=== PATIENT | male | born 1935 | race Caucasian/White ===

== ENCOUNTER 2018-01-17 13:21 | Inpatient (IN) ==
[2018-01-17] MEDS ORDERED: Morphine Sulfate Inj 2 MG/ML Vial IV.PUSH ONE (13:53)
--- NOTE | 2018-01-17 13:53 | ED ---
HPI General Chief Complaint: Fall Stated Complaint: Fall Time Seen by Provider: 01/17/18 13:37 Source: patient Mode of arrival: ambulatory Limitations: no limitations History of Present Illness HPI Narrative: 82-year-old male presents to the emergency room for evaluation of low back pain after a fall just prior to arrival. Patient was walking down his hallway when he tripped on the carpet and fell to the right striking his elbow on the wall before falling to the ground. Patient adamantly denies hitting his head or loss of consciousness. He was able to stand up in walk to the chair. States upon falling, he had pain to his low back that did not improve after sitting down. When his son got home, they called the ambulance who transferred him to the emergency room. Patient has not taken anything for symptoms. He denies upper or lower extremity paresthesias, saddle anesthesia, loss of bowel bladder control. He reports pain in the lower, midline lumbar region that is constant, severe, 10/10, and worse with movement. No radiation. He has history of slipped disks. Also history of hypercholesteremia, CHF, CAD , hypothyroidism, hypertension. He is on Eliquis and has a pacemaker and defibrillator. MD complaint: Reports fall Onset (ago): hour(s) Fall from: standing Fall witnessed: no Place fall occurred: home Loss of consciousness: none Prolonged down time: no Symptoms prior to fall: Reports none Context: Reports tripped/slipped Location of injury: Reports back Severity: severe Severity scale (1-10): 10 Quality: Reports stabbing Associated symptoms (after fall): Reports denies Related Data Home Medications Medication Instructions Recorded Confirmed Eliquis 2.5 mg PO QAM 01/17/18 01/17/18 atorvastatin 20 mg PO QPM 01/17/18 01/17/18 carvedilol 1 tab PO BID 01/17/18 01/17/18 furosemide 20 mg PO BID 01/17/18 01/17/18 levothyroxine 2.5 mg PO QAM 01/17/18 01/17/18 lisinopril 10 mg PO QAM 01/17/18 01/17/18 Allergies Allergy/AdvReac Type Severity Reaction Status Date / Time No Known Allergies Allergy Verified 01/17/18 13:27 Review of Systems ROS: all other systems reviewed are negative [facility] Medical History Medical History Chronic back pain (Acute) Edema (Acute) High cholesterol (Acute) Hypertension (Acute) Pacemaker (Acute) Social History Social History Substance History: No History of Abuse Second Hand Smoke Exposure: No Smoking Status: Never smoker How Often Do You Have a Drink Containing Alcohol: 2 to 4 times a month Recent Travel in [facility] within the Last 8 Weeks: No Recent Out of Country Travel within the Last 8 Weeks: No Immunization History Tetanus Immunization: Unsure Exam Narrative Exam Narrative: GENERAL: Well-nourished, elderly male in no acute distress. Afebrile. SKIN: Focused skin assessment warm/dry. No erythema or ecchymosis. HEAD: Normocephalic. EYES: No scleral icterus. No injection or drainage. NECK: Supple, trachea midline. No JVD or lymphadenopathy. CARDIOVASCULAR: Regular rate and rhythm without murmurs, gallops, or rubs. RESPIRATORY: Breath sounds equal bilaterally. No accessory muscle use. MUSCULOSKELETAL: No cyanosis, or edema. BACK: No obvious deformity. No CVA tenderness. Positive straight leg raise bilaterally. Mild tenderness to palpation of the lower thoracic and upper lumbar region. Course Initial Documented Vital Signs Temperature 98.6 F 01/17/18 13:33 Pulse Rate 70 01/17/18 13:33 Respiratory Rate 20 01/17/18 13:33 Blood Pressure 105/63 01/17/18 13:33 Pulse Oximetry 100 01/17/18 13:33 Last Documented Vital Signs Temperature 98.6 F 01/17/18 13:33 Pulse Rate 63 01/17/18 16:02 Respiratory Rate 18 01/17/18 16:02 Blood Pressure 114/65 01/17/18 16:02 Pulse Oximetry 100 01/17/18 16:02 Medical Decision Making [facility] Narrative Medical decision making narrative: 82-year-old male presents to the emergency room for evaluation of back pain after falling just prior to arrival. Patient had a trip and fall and fell to the right sustaining a skin tear to his right elbow before hitting the ground. He adamantly denies hitting his head or loss of consciousness. States he had significant back pain at that time but was able to stand up and walk to the couch. When his pain persisted, his family called 911 and had him brought to the emergency room. Patient denies any other pain or injury. Physical exam is reassuring. Patient is resting comfortably in bed. He has full range of motion of bilateral lower extremities with 5/5 strength. He was given 2 mg of morphine and Zofran for pain. CT of the lumbar spine shows severe compressive deformity at T12 with fracturing without significant compressive deformity at L1. I spoke to the neurosurgeon on-call, Dr. Mcelroy, who recommends placing patient in TLSO brace and admitting to the trauma service. My attending physician, Dr. Kraft, spoke to Dr. Hazel, the trauma surgeon, who agrees to accept this patient to his service. He recommends adding CT head and abdomen as well as chest x-ray. CT of the neck was also added. CT of the head, neck, and abdomen are negative for acute abnormalities. The abdomen CT shows possible ileus and inguinal hernia with fat on the right side. On exam I see no hernia. Patient denies any difficulty with bowel movements or abdominal pain. Patient was offered a second dose of pain medication but declined. Basic labs show evidence of mild dehydration. He was given 500 cc bolus of fluids. He will be transferred to the main hospital. Patient understands and agrees to plan. Medical Screen Exam Complete: Yes Emergency Medical Condition: Yes Differential Diagnosis Differential Diagnosis: Contusion, fracture, strain, spasm, degenerative disc disease Lab Data Result diagrams: 01/17/18 15:15 01/17/18 15:15 Lab Results 01/17/18 01/17/18 01/17/18 Range/Units 15:15 15:15 15:15 CBC w Diff Auto diff final WBC 11.1 H (4.0-11.0) th/mm3 RBC 3.29 L (4.50-5.90) mil/mm3 Hgb 11.4 L (13.0-17.0) gm/dL Hct 33.2 L (39.0-51.0) % MCV 101.1 H (80.0-100.0) fL MCH 34.7 H (27.0-34.0) pg MCHC 34.4 (32.0-36.0) % RDW 14.3 (11.6-17.2) % Plt Count 140 L (150-450) th/mm3 MPV 8.0 (7.0-11.0) fL Neut % (Auto) 66.0 (16.0-70.0) % Lymph % (Auto) 25.9 (9.0-44.0) % [place] % (Auto) 6.3 (0.0-8.0) % Eos % (Auto) 0.3 (0.0-4.0) % Baso % (Auto) 1.5 (0.0-2.0) % Neut # (Auto) 7.2 (1.8-7.7) th/mm3 Lymph # (Auto) 2.9 (1.0-4.8) th/mm3 [place] # (Auto) 0.7 (0.0-0.9) th/mm3 Eos # (Auto) 0.0 (0.0-0.4) th/mm3 Baso # (Auto) 0.2 (0.0-0.2) th/mm3 WBC Differential . Differential Comment . PT 15.5 H (9.8-11.6) sec INR 1.5 Ratio APTT 40.1 H (24.3-30.1) sec Sodium 127 L (136-145) meq/L Potassium 3.7 (3.5-5.1) meq/L Chloride 89 L (98-107) meq/L Carbon Dioxide 26.7 (21.0-32.0) meq/L Anion Gap 11 (5-15) meq/L BUN 10 (7-18) mg/dL Creatinine 1.30 (0.60-1.30) mg/dL Estimated GFR 53 L (>89) mL/min Random Glucose 115 H (74-106) mg/dL Calcium 8.0 L (8.5-10.1) mg/dL Total Bilirubin 2.2 H (0.2-1.0) mg/dL AST 50 H (15-37) U/L ALT 23 (12-78) U/L Alkaline Phosphatase 146 H (45-117) U/L Total Protein 7.9 (6.4-8.2) g/dL Albumin 2.7 L (3.4-5.0) g/dL Imaging Data Radiologist's impression: Lumbar Spine CT 01/17/18 13:50 CONCLUSION: Severe compressive deformity at T12 and fracturing without significant compressive deformity at L1. Abdomen/Pelvis CT 01/17/18 16:07 CONCLUSION: 1. Nonspecific bowel gas pattern. This may represent an ileus. The bowel extends down into the right inguinal hernia is no definite inflammatory change.. 2. No acute visceral injury. 3. Visualization of the known fracture deformity of the T12 vertebral body again noted. Please see lumbar spine CT for further details. 4. Bilateral inguinal hernias. On the right there is a loop of bowel in the hernia. On the left there is fat. Cervical Spine CT 01/17/18 16:07 CONCLUSION: 1. No fracture or dislocation. 2. Osteopenia and degenerative changes as detailed above. Chest X-Ray 01/17/18 16:07 CONCLUSION: No acute cardiopulmonary disease. Head CT 01/17/18 16:07 CONCLUSION: 1. No acute hemorrhage or mass effect. 2. Low-attenuation areas in the left frontal lobe most characteristic of an area of encephalomalacia and prior infarction. . Discharge Plan Discharge Disposition Patient Disposition: 01 Discharge Home Discharge Condition Condition: Stable Physicians Team ED Provider: Ernesto Kraft ED Midlevel Provider: Dana Gonzalez Primary Care Provider: Primary Care Sintia Greenberg Attending Provider: Katie Hazel Status ED Status: Admitted Patient
[2018-01-17 15:24] LABS: Baso # (Auto) 0.2 th/mm3 (0.0-0.2); Baso % (Auto) 1.5 % (0.0-2.0); Eos % (Auto) 0.3 % (0.0-4.0); Hematocrit 33.2 % (39.0-51.0); Hemoglobin 11.4 gm/dL (13.0-17.0); Lymph # (Auto) 2.9 th/mm3 (1.0-4.8); Lymph % (Auto) 25.9 % (9.0-44.0); Mean Corpuscular HGB Conc 34.4 % (32.0-36.0); Mean Corpuscular Hemoglobin 34.7 pg (27.0-34.0); Mean Corpuscular Volume 101.1 fL (80.0-100.0); Mono # (Auto) 0.7 th/mm3 (0.0-0.9); Mono % (Auto) 6.3 % (0.0-8.0); Neut # (Auto) 7.2 th/mm3 (1.8-7.7); Platelet Count 140 th/mm3 (150-450); Red Blood Count 3.29 mil/mm3 (4.50-5.90); Red Cell Distribution Width 14.3 % (11.6-17.2); White Blood Count 11.1 th/mm3 (4.0-11.0)
--- NOTE | 2018-01-17 15:34 | CT ---
EXAM DATE: 01/17/2018 3:07 PM EDT AGE/SEX: 82 years / Male INDICATIONS: Trauma. Fell today. Low back pain. CLINICAL DATA: This is the patient's initial encounter. Patient reports that signs and symptoms have been present for 1 day and indicates a pain score of 9/10. MEDICAL/SURGICAL HISTORY: Hypertension. Cardiovascular disease. Pacemaker. RADIATION DOSE: 20.16 CTDI (mGy) COMPARISON: No prior exams available for comparison. TECHNIQUE: Contiguous axial images were acquired with a multirow detector CT scanner without contras t. Multiplanar reconstructions in the sagittal and coronal plane were also performed. Using automate d exposure control and adjustment of the mA and/or kV according to patient size, radiation dose was k ept as low as reasonably achievable to obtain optimal diagnostic quality images. DICOM format image data is available electronically for review and comparison. FINDINGS: There is a severe compressive injury at L1 with near vertebral plana involving the anterior aspect of the vertebral body. There is no significant bony retropulsion. There appears to be mild fracturing o f the upper subendplate aspect of L1 without significant compression. The other vertebral elements ap pear intact. There is slight kyphotic accentuation associated with the T12 fracture. No spondylolisth esis. There is moderate diffuse osteopenia. There is no evidence of significant paraspinal hematoma. There are disc bulges present to a mild degree at all visualized levels. Mild canal stenosis related to dis c bulge and dorsal ligamentous hypertrophy most significantly at L4-5. CONCLUSION: Severe compressive deformity at T12 and fracturing without significant compressive deformity at L1. Electronically signed by: Pedro Macias MD 01/17/2018 3:33 PM EDT
[2018-01-17 15:38] LABS: Chloride 89 meq/L (98-107); Sodium 127 meq/L (136-145)
[2018-01-17 15:40] LABS: Potassium 3.7 meq/L (3.5-5.1)
[2018-01-17 15:41] LABS: Albumin 2.7 g/dL (3.4-5.0); Anion Gap 11 meq/L (5-15); Blood Urea Nitrogen 10 mg/dL (7-18); Carbon Dioxide 26.7 meq/L (21.0-32.0); Glucose,Random 115 mg/dL (74-106)
[2018-01-17 15:44] LABS: Alanine Aminotransferase 23 U/L (12-78); Aspartate Aminotransferase 50 U/L (15-37); Glomerular Filtration Rate 53 mL/min (>89)
[2018-01-17 15:46] LABS: Total Protein 7.9 g/dL (6.4-8.2)
[2018-01-17 15:47] LABS: Alkaline Phosphatase 146 U/L (45-117)
[2018-01-17] MEDS ORDERED: Sodium Chlor 0.9% Inj 500 ML IV.SIG SCH (16:00)
--- NOTE | 2018-01-17 16:36 | XR ---
EXAM DATE: 01/17/2018 4:07 PM EDT AGE/SEX: 82 years / Male INDICATIONS: Trauma to chest post fall CLINICAL DATA: This is the patient's initial encounter. Patient reports that signs and symptoms have been present for 1 day and indicates a pain score of 0/10. MEDICAL/SURGICAL HISTORY: . Hypertension. Cardiovascular disease. Pacemaker. COMPARISON: [facility] [place], CHEST PA & LAT, 12/09/2010. . FINDINGS: A single AP view of the chest demonstrates a right-sided pacing device. Ligated pacer leads on the le ft. Heart is at the upper limits of normal in terms of size. No pulmonary vascular origin. Lungs are clear. No infiltrate or effusion. Bony structures are unremarkable. CONCLUSION: No acute cardiopulmonary disease. Electronically signed by: Manav Richard MD 01/17/2018 4:35 PM EDT
[2018-01-17 16:55] LABS: Activated Partial Thrombo Time 40.1 sec (24.3-30.1); INR 1.5 Ratio; Prothrombin Time 15.5 sec (9.8-11.6)
--- NOTE | 2018-01-17 17:05 | CT ---
EXAM DATE: 01/17/2018 4:35 PM EDT AGE/SEX: 82 years / Male INDICATIONS: Trauma. Fall. Low back pain. Compression fracture deformity T12. CLINICAL DATA: This i s the patient's initial encounter. Patient reports that signs and symptoms have been present for 1 da y and indicates a pain score of 8/10. MEDICAL/SURGICAL HISTORY: Hypertension. Cardiovascular disease. Pacemaker. ORAL CONTRAST: No oral contrast ingested. RADIATION DOSE: 7.27 CTDI (mGy) COMPARISON: . TECHNIQUE: Multiple contiguous axial images were obtained through the abdomen and pelvis following b olus infusion of 85 ml Omnipaque 350 (iohexol) nonionic water-soluble contrast as a single exam dos e. No oral contrast ingested. Using automated exposure control and adjustment of the mA and/or kV ac cording to patient size, radiation dose was kept as low as reasonably achievable to obtain optimal di agnostic quality images. DICOM format image data is available electronically for review and comparis on. FINDINGS: Lower Lungs: There is mild scarring and minimal pleural fluid. A transvenous pacer and epicardial pac er leads are noted in the heart.. Liver: The liver has a homogeneous density without space-occupying lesion. There is no dilation of th e biliary tree. The gallbladder is unremarkable in appearance. Spleen: Homogeneous density without enlargement. Pancreas: Unremarkable without mass or calcification. Kidneys: Normal in size and shape. No evidence of mass or hydronephrosis. Adrenal Glands: Unremarkable. Aorta: The aorta and proximal iliac vessels are grossly unremarkable without aneurysmal dilation. Bowel/Mesentery: There are multiple loops of nondilated air-containing small bowel with several smal l air-fluid levels. There is mild gaseous tension in the colon with air-fluid levels as well. Abdominal Wall: Intact. Retroperitoneum: No evidence of adenopathy in the retrocrural, para-aortic, or deep pelvic regions. Bladder: Contours are smooth. Reproductive Organs: No abnormal masses or calcifications seen. Inguinal: Bilateral inguinal hernias. The hernia on the right contains a loop of bowel. On the left there is fat. Bony Structures: Osteopenia, degenerative change and mild scoliosis are again noted. The known compr ession fracture deformity of the T12 vertebral body is again visualized. Please see lumbar spine CT f or further details. CONCLUSION: 1. Nonspecific bowel gas pattern. This may represent an ileus. The bowel extends down into the right inguinal hernia is no definite inflammatory change.. 2. No acute visceral injury. 3. Visualization of the known fracture deformity of the T12 vertebral body again noted. Please see l umbar spine CT for further details. 4. Bilateral inguinal hernias. On the right there is a loop of bowel in the hernia. On the left ther e is fat. Electronically signed by: Ovi Squires MD 01/17/2018 5:03 PM EDT
--- NOTE | 2018-01-17 17:07 | CT ---
EXAM DATE: 01/17/2018 4:36 PM EDT AGE/SEX: 82 years / Male INDICATIONS: Trauma. Fall. CLINICAL DATA: This is the patient's initial encounter. Patient reports that signs and symptoms have been present for 1 day and indicates a pain score of 0/10. MEDICAL/SURGICAL HISTORY: Hypertension. Cardiovascular disease. Pacemaker. RADIATION DOSE: 61.29 CTDI (mGy) COMPARISON: No prior exams available for comparison. TECHNIQUE: CT of the head without contrast. Using automated exposure control and adjustment of the mA and/or kV according to patient size, radiation dose was kept as low as reasonably achievable to ob tain optimal diagnostic quality images. DICOM format image data is available electronically for revi ew and comparison. FINDINGS: Cerebrum: The ventricles are normal for age with diffuse moderate atrophic change with sulcal and ve ntricular prominence. There are benign calcifications in the basal ganglia and along the falx. There are low attenuation areas involving the left frontal lobe. No evidence of midline shift, mass lesion, hemorrhage or acute infarction. No extraaxial fluid collections are seen. Posterior Fossa: The cerebellum and brainstem are intact. The 4th ventricle is midline. The cerebe llopontine angle is unremarkable. Extracranial: The visualized portion of the orbits is intact. Skull: The calvaria is intact. No evidence of skull fracture. CONCLUSION: 1. No acute hemorrhage or mass effect. 2. Low-attenuation areas in the left frontal lobe most characteristic of an area of encephalomalacia and prior infarction. . Electronically signed by: Ovi Squires MD 01/17/2018 5:05 PM EDT
--- NOTE | 2018-01-17 17:14 | CT ---
EXAM DATE: 01/17/2018 4:36 PM EDT AGE/SEX: 82 years / Male INDICATIONS: Trauma. Fall. CLINICAL DATA: This is the patient's initial encounter. Patient reports that signs and symptoms have been present for 1 day and indicates a pain score of 0/10. MEDICAL/SURGICAL HISTORY: Hypertension. Cardiovascular disease. Pacemaker. RADIATION DOSE: 26.28 CTDI (mGy) COMPARISON: No prior exams available for comparison. TECHNIQUE: Contiguous axial images were obtained using helical multirow detector technique. The vol umetric data was post-processed with multiplanar reconstruction in oblique axial, sagittal, and coron al planes. Using automated exposure control and adjustment of the mA and/or kV according to patient s ize, radiation dose was kept as low as reasonably achievable to obtain optimal diagnostic quality mirza ges. DICOM format image data is available electronically for review and comparison. FINDINGS: Vertebrae: Normal vertebral body height. Alignment: A mild retrolisthesis of C3 on C4. No subluxation. Diffuse calcified atheromatous plaque within the carotid bulbs and proximal ICAs. C2-3: The bony spinal canal is normal in size. No evidence of disc bulge or herniation. The neural foramina are bilaterally patent. C3-4: A mild broad-based disc bulge slightly eccentric to the left with narrowing the left lateral r ecess. Central canal remains patent. Bony uncovertebral hypertrophy generates prominent left and mode rate right neural foraminal narrowing.. C4-5: A moderate broad-based disc bulge without central canal stenosis. Bony uncovertebral hypertrop hy generates moderate bilateral neural foraminal narrowing. C5-6: The bony spinal canal is normal in size. No evidence of disc bulge or herniation. The neural foramina are bilaterally patent. C6-7: The bony spinal canal is normal in size. No evidence of disc bulge or herniation. The neural foramina are bilaterally patent. C7-T1: The bony spinal canal is normal in size. No evidence of disc bulge or herniation. The neura l foramina are bilaterally patent. CONCLUSION: 1. No fracture or dislocation. 2. Osteopenia and degenerative changes as detailed above. Electronically signed by: Manav Richard MD 01/17/2018 5:13 PM EDT
[2018-01-17] MEDS: Morphine Sulfate Inj 2 MG/ML Vial IV.PUSH PRN (18:56)
[2018-01-17] MEDS: Sod Chloride 0.9% Inj 1,000 ML IV.CONT SCH (20:10)
[2018-01-17] MEDS: Pantoprazole Inj 40 MG Vial IV.PUSH SCH (20:11)
[2018-01-17] MEDS: Docusate Sodium 100 MG Capsule PO SCH (20:11)
--- NOTE | 2018-01-17 20:21 | P.HPCC ---
History of Present Illness Primary Care Physician: No Primary Care Physician History of Present Illness: 82 y.o male tripped and fell seen and worked up in [place] [facility].Patient has a T12 compression fracture.He complains of back pain GCS 15 neuro intact,HD normal. Inpatient Certification: I certify that the inpatient services were ordered in accordance with Medicare regulations governing the order. This includes certification that hospital inpatient services are reasonable and necessary and in the case of services not specified as inpatient-only under 42 CFR 419.22(n), that they are appropriately provided as inpatient services in accordance to with the 2-midnight benchmark under 43 CFR 412.3(e) Estimated Total Length of Stay (Days): 3 Plans for Post Hospital Care: Not yet determined Review of Systems All other systems reviewed negative except as stated in HPI [facility] - History History Provided By: Patient - Medical History Medical History: Medical History (Last Updated 01/17/18 @ 13:42 by Addie Henson RN) Chronic back pain Edema High cholesterol Hypertension Pacemaker - Tobacco History Second Hand Smoke Exposure: No Tobacco Use In Past 30 Days: No Smoking Status: Never smoker - Alcohol History How Often Do You Have a Drink Containing Alcohol: 2 to 4 times a month - Substance Use History Substance History: No History of Abuse - Travel History Recent Travel in the [place] Within the Last 8 Weeks: No Recent Travel Out of the Country Within the Last 8 Weeks: No - Immunization History Tetanus Immunization: Unsure Medications and Allergies Active Medications: Active Medications Al Hydroxide/Mg Hydroxide (Milk Of Dino Loyd) 30 ml PO BID [facility] Last Admin: 01/17/18 20:11 Dose: Not Given Atorvastatin Calcium (Lipitor) 20 mg PO QPM [facility] Last Admin: 01/17/18 20:11 Dose: 20 mg Bacitracin (Baciguent Oint) 1 applicatio TOPICAL BID [facility] Last Admin: 01/17/18 20:11 Dose: Not Given Chlorhexidine Gluconate (Chlorhexidine 2% Cloth) 3 pack TOPICAL DAILY@0400 PRN PRN Reason: Extra cloth needed Stop: 01/23/18 03:59 Chlorhexidine Gluconate (Chlorhexidine 2% Cloth) 3 pack TOPICAL DAILY@0400 [facility] Stop: 01/23/18 03:59 Docusate Sodium (Colace) 100 mg PO BID [facility] Last Admin: 01/17/18 20:11 Dose: 100 mg Enalaprilat (Vasotec Inj) 1.25 mg IV.PUSH Q8H PRN PRN Reason: Blood pressure 180/95 Sodium Chloride (Ns Inj) 500 mls @ 0 mls/hr IV.SIG BOLUS [facility] Last Infusion: 01/17/18 18:42 Dose: Infused Sodium Chloride (Ns Inj) 1,000 mls @ 50 mls/hr IV.CONT .Q20H [facility] Last Admin: 01/17/18 20:10 Dose: 50 mls/hr Morphine Sulfate (Morphine Inj) 2 mg IV.PUSH Q3H PRN PRN Reason: BREAKTHROUGH PAIN Last Admin: 01/17/18 18:56 Dose: 2 mg Ondansetron HCl (Zofran Inj) 4 mg IV.PUSH Q6H PRN PRN Reason: NAUSEA OR VOMITING Oxycodone/Acetaminophen (Percocet 5/325 Mg) 1 tab PO Q4H PRN PRN Reason: Acute Pain Oxycodone/Acetaminophen (Percocet 7.5/325 Mg) 1 tab PO Q4H PRN PRN Reason: Acute Pain Pantoprazole Sodium (Protonix Inj) 40 mg IV.PUSH Q24H [facility] Last Admin: 01/17/18 20:11 Dose: 40 mg Sodium Chloride (Ns Flush) 2 ml IV.FLUSH UNSCH PRN PRN Reason: FLUSH AFTER USING IV ACCESS Allergies Allergy/AdvReac Type Severity Reaction Status Date / Time No Known Allergies Allergy Verified 01/17/18 13:27 Home Medications Medication Instructions Recorded Confirmed Type Eliquis 2.5 mg PO QAM 01/17/18 01/17/18 History atorvastatin 20 mg PO QPM 01/17/18 01/17/18 History carvedilol 1 tab PO BID 01/17/18 01/17/18 History furosemide 20 mg PO BID 01/17/18 01/17/18 History levothyroxine 2.5 mg PO QAM 01/17/18 01/17/18 History lisinopril 10 mg PO QAM 01/17/18 01/17/18 History Results - Labs CBC & Chem 7: 01/17/18 15:15 01/17/18 15:15 Labs: Short CBC 01/17/18 Range/Units 15:15 WBC 11.1 H (4.0-11.0) th/mm3 Hgb 11.4 L (13.0-17.0) gm/dL Hct 33.2 L (39.0-51.0) % Plt Count 140 L (150-450) th/mm3 BMP 01/17/18 15:15 Sodium 127 L Potassium 3.7 Chloride 89 L Carbon Dioxide 26.7 BUN 10 Creatinine 1.30 Calcium 8.0 L Liver Function 01/17/18 Range/Units 15:15 Total Bilirubin 2.2 H (0.2-1.0) mg/dL AST 50 H (15-37) U/L ALT 23 (12-78) U/L Alkaline Phosphatase 146 H (45-117) U/L Albumin 2.7 L (3.4-5.0) g/dL - Imaging Impressions Lumbar Spine CT 01/17/18 13:50 CONCLUSION: Severe compressive deformity at T12 and fracturing without significant compressive deformity at L1. Abdomen/Pelvis CT 01/17/18 16:07 CONCLUSION: 1. Nonspecific bowel gas pattern. This may represent an ileus. The bowel extends down into the right inguinal hernia is no definite inflammatory change.. 2. No acute visceral injury. 3. Visualization of the known fracture deformity of the T12 vertebral body again noted. Please see lumbar spine CT for further details. 4. Bilateral inguinal hernias. On the right there is a loop of bowel in the hernia. On the left there is fat. Cervical Spine CT 01/17/18 16:07 CONCLUSION: 1. No fracture or dislocation. 2. Osteopenia and degenerative changes as detailed above. Chest X-Ray 01/17/18 16:07 CONCLUSION: No acute cardiopulmonary disease. Head CT 01/17/18 16:07 CONCLUSION: 1. No acute hemorrhage or mass effect. 2. Low-attenuation areas in the left frontal lobe most characteristic of an area of encephalomalacia and prior infarction. . Exam Vital signs: Vital Signs 01/17/18 13:33 01/17/18 16:02 01/17/18 18:38 Temperature 98.6 F Pulse Rate 70 63 70 Respiratory Rate 20 18 18 Blood Pressure 105/63 114/65 113/57 L Pulse Oximetry 100 100 Intake & Output 01/17/18 01/17/18 01/18/18 06:59 18:59 06:59 Intake Total 500 / 500 Balance 500 / 500 Weight 63.503 kg Intake: IV 500 / 500 NS Inj 500 ML @ Wide Open IV. 500 / 500 SIG BOLUS [facility] Rx#:[id number] - Constitutional no acute distress - Routine HEENT Exam Head: Present: normocephalic, atraumatic Eye: Present: EOMI, PERRL, normal accommodation ENT: Present: mucous membranes moist, oropharynx clear, TM's clear bilaterally - Routine Neck Exam Present: supple, full ROM, trachea midline - Routine Respiratory Exam Present: CTA bilaterally - Routine Cardiovascular Exam Present: RRR - Routine Abdominal Exam Present: soft - Routine Extremities Exam Present: full ROM - Routine Back/Spine/Pelvis Exam Back/Spine: Present: paraspinal tenderness, vertebral tenderness - Routine Skin Exam Present: intact - Routine Neurological Exam Present: alert, oriented X3 Caprini VTE Risk Assessment Caprini VTE Risk Assessment: Moderate/High Risk (score >= 2) VTE Pharmacological Exception Reason: High risk for bleeding (trauma) Caprini Risk Assessment Model: Point Value = 1 Point Value = 2 Point Value = 3 Point Value = 5 Age 41-60 Minor surgery BMI > 25 kg/m2 Swollen legs Varicose veins or History of unexplained or recurrent spontaneous Oral contraceptives or hormone replacement Sepsis (< 1 month) Serious lung disease, including pneumonia (< 1 month) Abnormal pulmonary function Acute myocardial infarction Congestive heart failure (< 1 month) History of inflammatory bowel disease Medical patient at bed rest Age 61-74 Arthroscopic surgery Major open surgery (> 45 min) Laparoscopic surgery (> 45 min) Malignancy Confined to bed (> 72 hours) Immobilizing plaster cast Central venous access Age >= 75 History of VTE Family history of VTE Factor V Leiden Prothrombin [id number] Lupus anticoagulant Anticardiolipin antibodies Elevated serum homocysteine Heparin-induced thrombocytopenia Other congenital or acquired thrombophilia Stroke (< 1 month) Elective arthroplasty Hip, pelvis, or leg fracture Acute spinal cord injury (< 1 month) Prophylaxis Regimen: Total Risk Factor Score Risk Level Prophylaxis Regimen 0-1 Low Early ambulation 2 Moderate Order ONE of the following: *Sequential Compression Device (SCD) *Heparin 5000 units SQ BID 3-4 Higher Order ONE of the following medications: *Heparin 5000 units SQ TID *Enoxaparin/Lovenox 40 mg SQ daily (WT < 150 kg, CrCl > 30 mL/min) *Enoxaparin/Lovenox 30 mg SQ daily (WT < 150 kg, CrCl > 10-29 mL/min) *Enoxaparin/Lovenox 30 mg SQ BID (WT < 150 kg, CrCl > 30 mL/min) AND/OR *Sequential Compression Device (SCD) 5 or more Highest Order ONE of the following medications: *Heparin 5000 units SQ TID (Preferred with Epidurals) *Enoxaparin/Lovenox 40 mg SQ daily (WT < 150 kg, CrCl > 30 mL/min) *Enoxaparin/Lovenox 30 mg SQ daily (WT < 150 kg, CrCl > 10-29 mL/min) *Enoxaparin/Lovenox 30 mg SQ BID (WT < 150 kg, CrCl > 30 mL/min) AND *Sequential Compression Device (SCD) Assessment and Plan - Assessment and Plan Plan: T12 compression fracture neuro intact admit ICU NS consult pain control
--- NOTE | 2018-01-17 21:37 | P.CONNS ---
History of Present Illness Primary Care Provider: No Primary Care Physician Chief Complaint: T12 compression History of Present Illness: 82yoM with ground level fall (prior syncopal event a few months earlier thought due to dehydration). Neurologically intact with back pain. Called his son ( whom he lives with) taken to [place], transferred here after imaging showing T12 compression fracture. Does not endorse weakness in legs or bowel/ bladder difficulty or numbness. [facility] - History History Provided By: Patient - Medical History Medical History: Medical History (Last Updated 01/17/18 @ 13:42 by Addie Henson RN) Chronic back pain Edema High cholesterol Hypertension Pacemaker - Tobacco History Second Hand Smoke Exposure: No Tobacco Use In Past 30 Days: No Smoking Status: Never smoker - Alcohol History How Often Do You Have a Drink Containing Alcohol: 2 to 4 times a month - Substance Use History Substance History: No History of Abuse - Travel History Recent Travel in the [place] Within the Last 8 Weeks: No Recent Travel Out of the Country Within the Last 8 Weeks: No - Immunization History Tetanus Immunization: Unsure Medications and Allergies Active Medications: Active Medications Al Hydroxide/Mg Hydroxide (Milk Of Dino Loyd) 30 ml PO BID [facility] Last Admin: 01/17/18 20:11 Dose: Not Given Atorvastatin Calcium (Lipitor) 20 mg PO QPM [facility] Last Admin: 01/17/18 20:11 Dose: 20 mg Bacitracin (Baciguent Oint) 1 applicatio TOPICAL BID [facility] Last Admin: 01/17/18 20:11 Dose: Not Given Chlorhexidine Gluconate (Chlorhexidine 2% Cloth) 3 pack TOPICAL DAILY@0400 PRN PRN Reason: Extra cloth needed Stop: 01/23/18 03:59 Chlorhexidine Gluconate (Chlorhexidine 2% Cloth) 3 pack TOPICAL DAILY@0400 [facility] Stop: 01/23/18 03:59 Docusate Sodium (Colace) 100 mg PO BID [facility] Last Admin: 01/17/18 20:11 Dose: 100 mg Enalaprilat (Vasotec Inj) 1.25 mg IV.PUSH Q8H PRN PRN Reason: Blood pressure 180/95 Sodium Chloride (Ns Inj) 500 mls @ 0 mls/hr IV.SIG BOLUS [facility] Last Infusion: 01/17/18 18:42 Dose: Infused Sodium Chloride (Ns Inj) 1,000 mls @ 50 mls/hr IV.CONT .Q20H [facility] Last Admin: 01/17/18 20:10 Dose: 50 mls/hr Morphine Sulfate (Morphine Inj) 2 mg IV.PUSH Q3H PRN PRN Reason: BREAKTHROUGH PAIN Last Admin: 01/17/18 18:56 Dose: 2 mg Ondansetron HCl (Zofran Inj) 4 mg IV.PUSH Q6H PRN PRN Reason: NAUSEA OR VOMITING Last Admin: 01/17/18 20:38 Dose: 4 mg Oxycodone/Acetaminophen (Percocet 5/325 Mg) 1 tab PO Q4H PRN PRN Reason: Acute Pain Oxycodone/Acetaminophen (Percocet 7.5/325 Mg) 1 tab PO Q4H PRN PRN Reason: Acute Pain Pantoprazole Sodium (Protonix Inj) 40 mg IV.PUSH Q24H [facility] Last Admin: 01/17/18 20:11 Dose: 40 mg Sodium Chloride (Ns Flush) 2 ml IV.FLUSH UNSCH PRN PRN Reason: FLUSH AFTER USING IV ACCESS Allergies Allergy/AdvReac Type Severity Reaction Status Date / Time No Known Allergies Allergy Verified 01/17/18 13:27 Home Medications Medication Instructions Recorded Confirmed Type Eliquis 2.5 mg PO QAM 01/17/18 01/17/18 History atorvastatin 20 mg PO QPM 01/17/18 01/17/18 History carvedilol 1 tab PO BID 01/17/18 01/17/18 History furosemide 20 mg PO BID 01/17/18 01/17/18 History levothyroxine 2.5 mg PO QAM 01/17/18 01/17/18 History lisinopril 10 mg PO QAM 01/17/18 01/17/18 History Exam Vital signs: Vital Signs 01/17/18 13:33 01/17/18 16:02 01/17/18 18:38 Temperature 98.6 F Pulse Rate 70 63 70 Respiratory Rate 20 18 18 Blood Pressure 105/63 114/65 113/57 L Pulse Oximetry 100 100 Intake & Output 01/17/18 01/17/18 01/18/18 06:59 18:59 06:59 Intake Total 500 / 500 Balance 500 / 500 Weight 63.503 kg Intake: IV 500 / 500 NS Inj 500 ML @ Wide Open IV. 500 / 500 SIG BOLUS [facility] Rx#:[id number] Narrative: A&O x 3 CN II-XII intact Motor 5/5 UE and LE Sensation intact throughout Results - Laboratory Findings CBC and BMP: 01/17/18 15:15 01/17/18 15:15 Abnormal lab findings: Abnormal Labs 01/17/18 01/17/18 01/17/18 15:15 15:15 15:15 WBC 11.1 H RBC 3.29 L Hgb 11.4 L Hct 33.2 L MCV 101.1 H MCH 34.7 H Plt Count 140 L PT 15.5 H APTT 40.1 H Sodium 127 L Chloride 89 L Estimated GFR 53 L Random Glucose 115 H Calcium 8.0 L Total Bilirubin 2.2 H AST 50 H Alkaline Phosphatase 146 H Albumin 2.7 L Assessment and Plan - Plan T12 compression fracture with angulation and loss of anterior height, neurologically intact Plan: TLSO brace Mobilize with brace if pain uncontrolled, call NSG back for consideration of kyphoplasty consider workup with medicine for syncope and (suspected) osteoporosis management appreciate trauma service help
[2018-01-18] MEDS: Chlorhexidine Gluconate 2% 1 Pack (2 Cloths) TOPICAL SCH (03:57)
[2018-01-18] MEDS ORDERED: Chlorhexidine Gluconate 2% 1 Pack (2 Cloths) TOPICAL PRN (04:00)
[2018-01-18 04:12] LABS: Baso % (Auto) 0.3 % (0.0-2.0); Eos % (Auto) 0.1 % (0.0-4.0); Hematocrit 29.8 % (39.0-51.0); Hemoglobin 10.6 gm/dL (13.0-17.0); Lymph # (Auto) 3.2 th/mm3 (1.0-4.8); Lymph % (Auto) 37.8 % (9.0-44.0); Mean Corpuscular HGB Conc 35.5 % (32.0-36.0); Mean Corpuscular Hemoglobin 35.4 pg (27.0-34.0); Mean Corpuscular Volume 99.9 fL (80.0-100.0); Mean Platelet Volume 8.4 fL (7.0-11.0); Mono # (Auto) 0.6 th/mm3 (0.0-0.9); Neut # (Auto) 4.6 th/mm3 (1.8-7.7); Neut % (Auto) 54.8 % (16.0-70.0); Platelet Count 121 th/mm3 (150-450); Red Blood Count 2.98 mil/mm3 (4.50-5.90); Red Cell Distribution Width 14.9 % (11.6-17.2); White Blood Count 8.5 th/mm3 (4.0-11.0)
[2018-01-18 04:32] LABS: Alanine Aminotransferase 20 U/L (12-78); Albumin 2.5 g/dL (3.4-5.0); Anion Gap 9 meq/L (5-15); Aspartate Aminotransferase 26 U/L (15-37); Blood Urea Nitrogen 9 mg/dL (7-18); Calcium 7.8 mg/dL (8.5-10.1); Carbon Dioxide 29.4 meq/L (21.0-32.0); Chloride 93 meq/L (98-107); Glomerular Filtration Rate 63 mL/min (>89); Glucose,Random 121 mg/dL (74-106); Potassium 3.5 meq/L (3.5-5.1); Sodium 131 meq/L (136-145)
[2018-01-18 04:34] LABS: Alkaline Phosphatase 135 U/L (45-117); Total Protein 7.3 g/dL (6.4-8.2)
[2018-01-18] MEDS: Docusate Sodium 100 MG Capsule PO SCH ×3 (08:57→20:21)
--- NOTE | 2018-01-18 11:19 | P.PNNS ---
Subjective Interval history: reports good pain control. bedrest through night. [facility] Physical Exam Vital signs: Vital Signs 01/17/18 13:33 01/17/18 16:02 01/17/18 18:38 Temperature 98.6 F Pulse Rate 70 63 70 Respiratory Rate 20 18 18 Blood Pressure 105/63 114/65 113/57 L Pulse Oximetry 100 100 01/17/18 19:32 01/17/18 19:35 01/17/18 19:36 Temperature Pulse Rate 64 64 Respiratory Rate 18 Blood Pressure 118/66 124/60 Pulse Oximetry 97 98 97 01/17/18 20:00 01/17/18 21:00 01/17/18 22:00 Temperature 98.2 F Pulse Rate 60 59 L 59 L Respiratory Rate 18 23 22 Blood Pressure 105/58 L 115/56 L 100/58 L Pulse Oximetry 96 98 96 01/17/18 23:00 01/18/18 00:00 01/18/18 01:00 Temperature Pulse Rate 59 L 59 L 60 Respiratory Rate 18 26 H 31 H Blood Pressure 98/57 L 92/52 L 111/56 L Pulse Oximetry 94 L 95 94 L 01/18/18 02:00 01/18/18 03:00 01/18/18 04:00 Temperature 98.2 F Pulse Rate 59 L 59 L 60 Respiratory Rate 19 13 19 Blood Pressure 98/55 L 99/55 L 118/63 Pulse Oximetry 97 96 93 L 01/18/18 05:00 01/18/18 06:00 01/18/18 07:00 Temperature Pulse Rate 59 L 59 L 59 L Respiratory Rate 21 18 16 Blood Pressure 116/63 111/71 117/58 L Pulse Oximetry 95 95 95 01/18/18 08:00 01/18/18 09:00 01/18/18 10:00 Temperature 98 F Pulse Rate 60 59 L 61 Respiratory Rate 15 17 28 H Blood Pressure 108/56 L 112/60 102/58 L Pulse Oximetry 92 L 94 L 92 L 01/18/18 11:00 Temperature Pulse Rate 59 L Respiratory Rate 21 Blood Pressure 104/55 L Pulse Oximetry 93 L Intake & Output 01/17/18 01/18/18 01/18/18 18:59 06:59 18:59 Intake Total 500 / 500 180 / 180 Output Total 600 / 600 Balance 500 / 500 -420 / -420 Weight 63.503 kg 57.7 kg Intake: IV 500 / 500 NS Inj 500 ML @ Wide Open IV. 500 / 500 SIG BOLUS [facility] Rx#:[id number] Oral 180 / 180 Output: Urine Amount (Catheter) 600 / 600 Indwelling Temp Sensing 600 / 600 Catheter Other: Date of Last Bowel Movement 01/16/18 01/16/18 Weight On Admission 57.7 kg Narrative: A&O x 3 Motor 5/5 UE and LE Sensation intact throughout Bedrest - Urinary Catheter Management Indwelling Temp Sensing Catheter Cath placed during this visit: yes Reason for continuing: Acute urinary retention Insertion date: 01/18/18 Assessment and Plan - Plan A/P: 82 yo with T12 compression fracture. Due to patients age and medical co- morbidities, will attempt to treat conservatively -Recommend upright AP/Lateral Xrays in TLSO brace to verify good stability -ok to be OOB with brace (once xrays reviewed by neurosurgery) -pain control -Calcium/Vit D supplementation with possible medicine/endocrinology consult for osteoporosis workup/management
--- NOTE | 2018-01-18 11:37 | P.PNCC ---
Subjective Brief History: [place]: This is an 82-year-old male who sustained a fall. He tripped on the carpet and fell to the ground. No LOC. He was able to stand and walk post fall. No paresthesia. Original complaints of back pain. Trauma to transfer from [facility]. INJURIES: T12 fx L1 compression fx Bilateral inguinal hernias PMHX; Slipped disks. HLD. HTN. CHF. CAD. Hypothyroidism. Pacemaker/ defibrillator. On Eliquis. 24 Hour Review/Hospital Course: 01/18/2018 Patient sitting up in bed. No distress noted. Patient states that he is not painful, "as long as I lay on my back and do not move." Plan for upright x-rays with TLSO brace for further evaluation. Patient is hemodynamically stable, therefore once x-rays are completed, he may transfer to the [facility] floor. Objective Vital Signs / I&O: Vital Signs 01/17/18 13:33 01/17/18 16:02 01/17/18 18:38 Temperature 98.6 F Pulse Rate 70 63 70 Respiratory Rate 20 18 18 Blood Pressure 105/63 114/65 113/57 L Pulse Oximetry 100 100 01/17/18 19:32 01/17/18 19:35 01/17/18 19:36 Temperature Pulse Rate 64 64 Respiratory Rate 18 Blood Pressure 118/66 124/60 Pulse Oximetry 97 98 97 01/17/18 20:00 01/17/18 21:00 01/17/18 22:00 Temperature 98.2 F Pulse Rate 60 59 L 59 L Respiratory Rate 18 23 22 Blood Pressure 105/58 L 115/56 L 100/58 L Pulse Oximetry 96 98 96 01/17/18 23:00 01/18/18 00:00 01/18/18 01:00 Temperature Pulse Rate 59 L 59 L 60 Respiratory Rate 18 26 H 31 H Blood Pressure 98/57 L 92/52 L 111/56 L Pulse Oximetry 94 L 95 94 L 01/18/18 02:00 01/18/18 03:00 01/18/18 04:00 Temperature 98.2 F Pulse Rate 59 L 59 L 60 Respiratory Rate 19 13 19 Blood Pressure 98/55 L 99/55 L 118/63 Pulse Oximetry 97 96 93 L 01/18/18 05:00 01/18/18 06:00 01/18/18 07:00 Temperature Pulse Rate 59 L 59 L 59 L Respiratory Rate 21 18 16 Blood Pressure 116/63 111/71 117/58 L Pulse Oximetry 95 95 95 01/18/18 08:00 01/18/18 09:00 01/18/18 10:00 Temperature 98 F Pulse Rate 60 59 L 61 Respiratory Rate 15 17 28 H Blood Pressure 108/56 L 112/60 102/58 L Pulse Oximetry 92 L 94 L 92 L 01/18/18 11:00 Temperature Pulse Rate 59 L Respiratory Rate 21 Blood Pressure 104/55 L Pulse Oximetry 93 L Intake & Output 01/17/18 01/18/18 01/18/18 18:59 06:59 18:59 Intake Total 500 / 500 180 / 180 Output Total 600 / 600 Balance 500 / 500 -420 / -420 Weight 63.503 kg 57.7 kg Intake: IV 500 / 500 NS Inj 500 ML @ Wide Open IV. 500 / 500 SIG BOLUS [facility] Rx#:[id number] Oral 180 / 180 Output: Urine Amount (Catheter) 600 / 600 Indwelling Temp Sensing 600 / 600 Catheter Other: Date of Last Bowel Movement 01/16/18 01/16/18 Weight On Admission 57.7 kg Result Diagrams: 01/18/18 02:35 01/18/18 02:35 Imaging: Impressions Lumbar Spine CT 01/17/18 13:50 CONCLUSION: Severe compressive deformity at T12 and fracturing without significant compressive deformity at L1. Abdomen/Pelvis CT 01/17/18 16:07 CONCLUSION: 1. Nonspecific bowel gas pattern. This may represent an ileus. The bowel extends down into the right inguinal hernia is no definite inflammatory change.. 2. No acute visceral injury. 3. Visualization of the known fracture deformity of the T12 vertebral body again noted. Please see lumbar spine CT for further details. 4. Bilateral inguinal hernias. On the right there is a loop of bowel in the hernia. On the left there is fat. Cervical Spine CT 01/17/18 16:07 CONCLUSION: 1. No fracture or dislocation. 2. Osteopenia and degenerative changes as detailed above. Chest X-Ray 01/17/18 16:07 CONCLUSION: No acute cardiopulmonary disease. Head CT 01/17/18 16:07 CONCLUSION: 1. No acute hemorrhage or mass effect. 2. Low-attenuation areas in the left frontal lobe most characteristic of an area of encephalomalacia and prior infarction. . Disinhibition Score: 14.00 Aggression Score: 14.00 Lability Score: 14.00 Agitated Behavior Total Score: 14 Objective Remarks: GENERAL: This is a 82-year-old male sitting up in bed. No distress noted. SKIN: Warm and dry. HEAD: Atraumatic. Normocephalic. EYES: PERRLA ENT: No nasal bleeding or discharge. Mucous membranes pink and moist. NECK: Trachea midline. No JVD. CARDIOVASCULAR: Regular rate and rhythm. RESPIRATORY: No accessory muscle use. Lungs are clear to auscultation. Breath sounds equal bilaterally. No distress or dyspnea. GASTROINTESTINAL: BS + x 4 quads. Abdomen soft, non-tender, nondistended. MUSCULOSKELETAL: Extremities without cyanosis, or edema. + peripheral pulses x 4 extremities. Warm with good capillary refill and sensation. MAEW. NEUROLOGICAL: Awake and alert. Normal speech and pattern. Assessment and Plan - Assessment (1) T12 vertebral fracture Code(s): S22.089A - Unspecified fracture of T11-T12 vertebra, initial encounter for closed fracture Status: Acute (2) Compression fracture of L1 lumbar vertebra Code(s): S32.010A - Wedge compression fracture of first lumbar vertebra, initial encounter for closed fracture Status: Acute Plan: [place]: This is a 82-year-old male who sustained a fall. He tripped on the carpet and fell onto the ground. No LOC. He was able to stand and walk after the fall. No paresthesia. He complains of back pain. He is a trauma transfer from [facility]. INJURIES: T12 fx L1 compression fx Bilateral inguinal hernias PMHX; Slipped disks. HLD. HTN. CHF. CAD. Hypothyroidism. Pacemaker/ defibrillator. On Eliquis. Procedures: Consults: Neurosurgery. Hospitalist. Rehab medicine. Case management. Diet: Cardiac diet. Tolerating po diet. Encourage good po intake with each meal. Pulmonary: Encourage good pulmonary toileting. IS at bedside and pt encouraged to use. Rationale for use explained to patient, and verbalized understanding. PAIN Management: Percocet 5-7.5 mg q4h. Morphine 2 mg q 3h for breakthrough pain. Activity: OOB. . PT and OT ordered. (TLSO when out of bed) GI prophylaxis: Protonix 40 mg QD Bowel regimen: Colace. MOM. LBM: o Maintain Mai catheter today. Plan for removal tomorrow DVT prophylaxis: Mechanical VTE with SCDs. Chemical management -resume home Eliquis 2.5 mg daily. DC Planning: Case management consulted for assistance with final discharge disposition. Awaiting PT evaluation for final discharge planning. Emotional support provided to patient and family at bedside and plan of care discussed. Discussed with RN at bedside. Discussed pt condition and plan of care with collaborating trauma surgeon. Patient is hemodynamically stable in the ICU, therefore he may be transferred and further managed on the med/surg floor. The trauma team will round each day, and evaluate plan of care on a daily basis. T12 fx L1 compression fx Neurosurgery consulted and assisting in management and care Supportive care Nonoperative management at this time TLSO brace when out of bed Pain management Follow up up right x-rays -to be evaluated by neurosurgery Encourage out of bed once cleared by neurosurgery post x-rays PT and OT ordered Bowel regimen Rehab consult Slipped disks. HLD. HTN. CHF. CAD. Hypothyroidism. Pacemaker/defibrillator. On Eliquis. Hospitalist consult to assist with medical management Vital signs every 4 hours and as needed Cardiac diet Resume home Coreg Resume home Lipitor Resume home Synthroid Resume home Eliquis Attestation: Patient seen and examined with the nurse practitioner during ICU rounds He is neurologically intact good strength on extremities According to neurosurgery treatment is nonsurgical and a brace has been ordered We will transfer patient to the floor after brace fitting Keep Mai in another 24 hours (1) T12 vertebral fracture Qualifiers: Encounter type: initial encounter Fracture type: closed Fracture morphology : unspecified fracture morphology Qualified Code(s): S22.089A - Unspecified fracture of T11-T12 vertebra, initial encounter for closed fracture (2) Compression fracture of L1 lumbar vertebra Qualifiers: Encounter type: initial encounter Fracture type: closed Qualified Code(s): S32.010A - Wedge compression fracture of first lumbar vertebra, initial encounter for closed fracture
[2018-01-18] MEDS: Morphine Sulfate Inj 2 MG/ML Vial IV.PUSH PRN ×2 (13:52→18:37)
--- NOTE | 2018-01-18 14:42 | XR ---
EXAM DATE: 01/18/2018 1:40 PM EDT AGE/SEX: 82 years / Male INDICATIONS: Patient previous fracture to T12-L1. CLINICAL DATA: This is the patient's subsequent encounter. Patient reports that signs and symptoms h ave been present for 1 week and indicates a pain score of 0/10. MEDICAL/SURGICAL HISTORY: Hypertension. Cardiovascular disease. Pacemaker. COMPARISON: [facility], CT LUMBAR SPINE W/O CONTRAST, 01/17/2018. . FINDINGS: Redemonstration of severe compression fracture at T12 with exaggerated kyphosis of the thoracolumbar spine. There is mild compression deformity at L1 minimally increased from prior exam. Remaining verte bral body heights are intact. Sagittal alignment is grossly maintained. There is a TSLO brace in plac e with multiple leads projecting over the left mid thoracic spine on the frontal projection. Bone den sity is diffusely decreased. Soft tissues are grossly intact. CONCLUSION: 1. Redemonstration of severe compression fracture at T12 resulting in exaggerated kyphosis of the th oracolumbar spine. 2. Mild compression deformity at L1 which has minimally increased from prior exam. Electronically signed by: Damian Antonio MD 01/18/2018 2:40 PM EDT
--- NOTE | 2018-01-18 15:34 | P.EN ---
TLSO brace fitted. Xrays with increase in kyphotic deformity when comparing upright films to supine CT. Attempt to slowly mobilize patient in TLSO, upright in bed, to ambulating. Notify neurosurgery if patient with any subjective complaints (parasthesias, weakness, increase in pain), prompting return to bedrest
[2018-01-18] MEDS: Sod Chloride 0.9% Inj 1,000 ML IV.CONT SCH (17:58)
[2018-01-18] MEDS: Pantoprazole Inj 40 MG Vial IV.PUSH SCH (20:07)
[2018-01-19] MEDS: Chlorhexidine Gluconate 2% 1 Pack (2 Cloths) TOPICAL SCH (03:27)
--- NOTE | 2018-01-19 07:04 | P.PNNS ---
Subjective Interval history: patient with significant pain when upright for xrays. tolerating HOB elevated in bed. denies any LE neurological symptoms Physical Exam Vital signs: Vital Signs 01/18/18 07:00 01/18/18 08:00 01/18/18 09:00 Temperature 98 F Pulse Rate 59 L 60 59 L Respiratory Rate 16 15 17 Blood Pressure 117/58 L 108/56 L 112/60 Pulse Oximetry 95 92 L 94 L 01/18/18 10:00 01/18/18 11:00 01/18/18 12:00 Temperature 97.8 F Pulse Rate 61 59 L 64 Respiratory Rate 28 H 21 15 Blood Pressure 102/58 L 104/55 L 109/56 L Pulse Oximetry 92 L 93 L 92 L 01/18/18 13:00 01/18/18 13:24 01/18/18 14:00 Temperature Pulse Rate 60 60 61 Respiratory Rate 16 33 H 28 H Blood Pressure 113/56 L 128/60 116/58 L Pulse Oximetry 92 L 92 L 94 L 01/18/18 15:00 01/18/18 16:00 01/18/18 16:14 Temperature 97.5 F L Pulse Rate 61 60 60 Respiratory Rate 9 L 10 L Blood Pressure 115/53 L Pulse Oximetry 95 96 96 01/18/18 17:00 01/18/18 17:30 01/18/18 18:00 Temperature Pulse Rate 59 L 63 59 L Respiratory Rate 26 H 31 H 23 Blood Pressure 103/84 Pulse Oximetry 94 L 94 L 89 L 01/18/18 20:00 01/18/18 20:48 01/19/18 00:00 Temperature 98.2 F 98.3 F Pulse Rate 58 L 60 60 Respiratory Rate 21 15 Blood Pressure 98/54 L 98/54 L Pulse Oximetry 98 100 01/19/18 04:00 Temperature 98.5 F Pulse Rate 62 Respiratory Rate 16 Blood Pressure 101/57 L Pulse Oximetry 100 Intake & Output 01/18/18 01/18/18 01/19/18 06:59 18:59 06:59 Intake Total 180 / 180 1325 / 1325 Output Total 600 / 600 400 / 400 200 / 200 Balance -420 / -420 925 / 925 -200 / -200 Weight 57.7 kg 59.2 kg Intake: IV 1000 / 1000 NS Inj 1,000 ML @ 50 mls/hr IV. 1000 / 1000 CONT .Q20H [facility] Rx#:[id number] Oral 180 / 180 325 / 325 Output: Urine Amount (Catheter) 600 / 600 400 / 400 200 / 200 Indwelling Temp Sensing 600 / 600 400 / 400 200 / 200 Catheter Other: Date of Last Bowel Movement 01/16/18 01/16/18 01/16/18 Weight On Admission 57.7 kg Narrative: A&O x 3 FCC x4 Motor 5/5 UE and LE Sensation intact throughout - Urinary Catheter Management Indwelling Temp Sensing Catheter Cath placed during this visit: yes, but has since been removed by the nurse Reason for continuing: Acute urinary retention Insertion date: 01/18/18 Removal date: 01/19/18 Removal time: 06:00 Assessment and Plan - Plan A/P: 82 yo with 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 Patient fitted in TLSO yesterday with upright films demonstrating increase in kyphosis centered at T12 level. Due to chronic appearing nature of fracture this could be patients natural alignment and increase in pain secondary to acute fracture at L1. Due to patients age, medical co-morbidities, and lack of significant mobility prior to injury, will attempt to treat conservatively -TLSO fitted and films reviewed -recommend slow progression in patients activity. Recommend HOB 45-90 degrees in TLSO today as patient tolerates. attempt to mobilize tomorrow -pain control -Calcium/Vit D supplementation with possible medicine/endocrinology consult for osteoporosis workup/management -ok to transfer patient to floor -possible MR to evaluate acuity of fracture if pacemaker allows
--- NOTE | 2018-01-19 07:43 | P.CON ---
History of Present Illness Service: Hospitalist Consult date: 01/19/18 Reason for Consult: Medical management Primary Care Provider: No Primary Care Physician Chief Complaint: T12 compression History of Present Illness: Mr. Escudero is a pleasant 82 year old male with a history of CAD, CHF, complete heart block s/p pacemaker placement ([employer] pacemaker, placed in 2010) who was admitted under trauma alert due to a fall. He sustained a T12 compression fracture as well as L1 superior endplate acute fracture. Trauma service as well as neurosurgery following patient. Neurosurgery recommended TLSO and slow progression patient's activity. Hospital service was consulted for medical management. At the time of this interview, patient denies any chest pain, shortness of breath, fever or chills. No changes in bowel or bladder habits. Review of Systems All other systems reviewed negative except as stated in HPI [facility] - History History Provided By: Patient - Medical History Medical History: Medical History (Last Reviewed 01/20/18 @ 07:34 by Maureen Ramirez) Chronic back pain Edema High cholesterol - Tobacco History Second Hand Smoke Exposure: No Tobacco Use In Past 30 Days: No Smoking Status: Former smoker - Alcohol History How Often Do You Have a Drink Containing Alcohol: 2 to 3 times a week - Substance Use History Substance History: No History of Abuse - Travel History Recent Travel in the [place] Within the Last 8 Weeks: No Recent Travel Out of the Country Within the Last 8 Weeks: No - Immunization History Tetanus Immunization: Unsure Medications and Allergies Active Medications: Active Medications Al Hydroxide/Mg Hydroxide (Milk Of Dino Loyd) 30 ml PO BID [facility] Last Admin: 01/18/18 20:21 Dose: Not Given Apixaban (Eliquis) 2.5 mg PO DAILY [facility] Atorvastatin Calcium (Lipitor) 20 mg PO QPM [facility] Last Admin: 01/18/18 17:57 Dose: 20 mg Bacitracin (Baciguent Oint) 1 applicatio TOPICAL BID [facility] Last Admin: 01/18/18 20:07 Dose: 1 applicatio Carvedilol (Coreg) 3.125 mg PO BID [facility] Last Admin: 01/18/18 20:07 Dose: 3.125 mg Chlorhexidine Gluconate (Chlorhexidine 2% Cloth) 3 pack TOPICAL DAILY@0400 PRN PRN Reason: Extra cloth needed Stop: 01/23/18 03:59 Chlorhexidine Gluconate (Chlorhexidine 2% Cloth) 3 pack TOPICAL DAILY@0400 [facility] Stop: 01/23/18 03:59 Last Admin: 01/19/18 03:27 Dose: 3 pack Docusate Sodium (Colace) 100 mg PO BID [facility] Last Admin: 01/18/18 20:21 Dose: Not Given Enalaprilat (Vasotec Inj) 1.25 mg IV.PUSH Q8H PRN PRN Reason: Blood pressure 180/95 Sodium Chloride (Ns Inj) 500 mls @ 0 mls/hr IV.SIG BOLUS [facility] Last Infusion: 01/17/18 18:42 Dose: Infused Sodium Chloride (Ns Inj) 1,000 mls @ 50 mls/hr IV.CONT .Q20H [facility] Last Admin: 01/18/18 17:58 Dose: 50 mls/hr Levothyroxine Sodium (Synthroid) 25 mcg PO DAILY@0600 [facility] Last Admin: 01/19/18 05:02 Dose: 25 mcg Morphine Sulfate (Morphine Inj) 2 mg IV.PUSH Q3H PRN PRN Reason: BREAKTHROUGH PAIN Last Admin: 01/18/18 18:37 Dose: 2 mg Ondansetron HCl (Zofran Inj) 4 mg IV.PUSH Q6H PRN PRN Reason: NAUSEA OR VOMITING Last Admin: 01/17/18 20:38 Dose: 4 mg Oxycodone/Acetaminophen (Percocet 5/325 Mg) 1 tab PO Q4H PRN PRN Reason: Acute Pain Last Admin: 01/18/18 13:53 Dose: 1 tab Oxycodone/Acetaminophen (Percocet 7.5/325 Mg) 1 tab PO Q4H PRN PRN Reason: Acute Pain Pantoprazole Sodium (Protonix Inj) 40 mg IV.PUSH Q24H [facility] Last Admin: 01/18/18 20:07 Dose: 40 mg Sodium Chloride (Ns Flush) 2 ml IV.FLUSH UNSCH PRN PRN Reason: FLUSH AFTER USING IV ACCESS Allergies Allergy/AdvReac Type Severity Reaction Status Date / Time No Known Allergies Allergy Verified 01/17/18 13:27 Home Medications Medication Instructions Recorded Confirmed Type Eliquis 2.5 mg PO QAM 01/17/18 01/17/18 History atorvastatin 20 mg PO QPM 01/17/18 01/17/18 History carvedilol 1 tab PO BID 01/17/18 01/17/18 History furosemide 20 mg PO BID 01/17/18 01/17/18 History levothyroxine 2.5 mg PO QAM 01/17/18 01/17/18 History lisinopril 10 mg PO QAM 01/17/18 01/17/18 History Physical Exam Vital signs: Vital Signs 01/18/18 08:00 01/18/18 09:00 01/18/18 10:00 Temperature 98 F Pulse Rate 60 59 L 61 Respiratory Rate 15 17 28 H Blood Pressure 108/56 L 112/60 102/58 L Pulse Oximetry 92 L 94 L 92 L 01/18/18 11:00 01/18/18 12:00 01/18/18 13:00 Temperature 97.8 F Pulse Rate 59 L 64 60 Respiratory Rate 21 15 16 Blood Pressure 104/55 L 109/56 L 113/56 L Pulse Oximetry 93 L 92 L 92 L 01/18/18 13:24 01/18/18 14:00 01/18/18 15:00 Temperature Pulse Rate 60 61 61 Respiratory Rate 33 H 28 H Blood Pressure 128/60 116/58 L Pulse Oximetry 92 L 94 L 95 01/18/18 16:00 01/18/18 16:14 01/18/18 17:00 Temperature 97.5 F L Pulse Rate 60 60 59 L Respiratory Rate 9 L 10 L 26 H Blood Pressure 115/53 L Pulse Oximetry 96 96 94 L 01/18/18 17:30 01/18/18 18:00 01/18/18 20:00 Temperature 98.2 F Pulse Rate 63 59 L 58 L Respiratory Rate 31 H 23 21 Blood Pressure 103/84 98/54 L Pulse Oximetry 94 L 89 L 98 01/18/18 20:48 01/19/18 00:00 01/19/18 04:00 Temperature 98.3 F 98.5 F Pulse Rate 60 60 62 Respiratory Rate 15 16 Blood Pressure 98/54 L 101/57 L Pulse Oximetry 100 100 Intake & Output 01/18/18 01/19/18 01/19/18 18:59 06:59 18:59 Intake Total 1325 / 1325 Output Total 400 / 400 200 / 200 Balance 925 / 925 -200 / -200 Weight 59.2 kg Intake: IV 1000 / 1000 NS Inj 1,000 ML @ 50 mls/hr IV. 1000 / 1000 CONT .Q20H [facility] Rx#:[id number] Oral 325 / 325 Output: Urine Amount (Catheter) 400 / 400 200 / 200 Indwelling Temp Sensing 400 / 400 200 / 200 Catheter Other: Date of Last Bowel Movement 01/16/18 01/16/18 Narrative: GENERAL: This is a well-nourished, well-developed patient, in no apparent distress. SKIN: No rashes, ecchymoses or lesions. Warm and dry. HEAD: Atraumatic. Normocephalic. No temporal or scalp tenderness. EYES: Pupils equal round and reactive. No injection or drainage. ENT: Nose without bleeding, purulent drainage or septal hematoma. Airway patent. NECK: Trachea midline. No lymphadenopathy. Supple, nontender, no meningeal signs. CARDIOVASCULAR: Regular rate and rhythm without murmurs, gallops, or rubs. No JVD. RESPIRATORY: Clear to auscultation. Breath sounds equal bilaterally. No wheezes , rales, or rhonchi. GASTROINTESTINAL: Abdomen soft, non-tender, nondistended. No guarding. MUSCULOSKELETAL: Extremities without clubbing, cyanosis, or edema. NEUROLOGICAL: Awake and alert. Cranial nerves II through XII intact. No focal neurological deficits. Normal speech. - Urinary Catheter Management Indwelling Temp Sensing Catheter Cath placed during this visit: yes, but has since been removed by the nurse Reason for continuing: Acute urinary retention Insertion date: 01/18/18 Removal date: 01/19/18 Removal time: 06:00 Assessment and Plan - Plan Mr. Escudero is a pleasant 82-year-old male with a history of complete heart block status post pacemaker placement, hypertension, hypothyroidism who was admitted to the hospital under trauma alert after he fell and sustained a T12-L1 fracture. Trauma surgery and neurosurgery have been following patient. Hospital service was consulted for medical management. Fall T12 and L1 fracture -Neurosurgery following and recommends TLSO brace as well as gradual mobilization. -Continue Percocet for pain management as well as lidocaine patch History of complete heart block Hypothyroidism Hyperlipidemia -Status post [employer] pacemaker placement in 2010. -Patient is currently on carvedilol 3.125 mg twice daily. -Continue levothyroxine 25 mcg daily -Continue atorvastatin 20 mg daily. -Continue apixaban 2.5 mg p.o. daily. This likely should be BID. Full code. Apixaban.
[2018-01-19] MEDS: Docusate Sodium 100 MG Capsule PO SCH ×2 (10:10→21:28)
--- NOTE | 2018-01-19 13:01 | P.PNCC ---
Subjective Brief History: [place]: This is an 82-year-old male who sustained a fall. He tripped on the carpet and fell to the ground. No LOC. He was able to stand and walk post fall. No paresthesia. Original complaints of back pain. Trauma to transfer from [facility]. INJURIES: T12 fx L1 compression fx Bilateral inguinal hernias PMHX; Slipped disks. HLD. HTN. CHF. CAD. Hypothyroidism. Pacemaker/ defibrillator. On Eliquis. 24 Hour Review/Hospital Course: 01/18/2018 Patient sitting up in bed. No distress noted. Patient states that he is not painful, "as long as I lay on my back and do not move." Plan for upright x-rays with TLSO brace for further evaluation. Patient is hemodynamically stable, therefore once x-rays are completed, he may transfer to the [facility] floor. 01/19/2018 Patient sitting up in bed. No distress noted. No complaints of pain while patient is in bed. Patient states he is feeling, "so-so." Begin slow progress shunt towards activity per neurosurgery. Plan for OOB tomorrow. Patient may transfer to the [facility] floor once a bed becomes available. Objective Vital Signs / I&O: Vital Signs 01/18/18 13:00 01/18/18 13:24 01/18/18 14:00 Temperature Pulse Rate 60 60 61 Respiratory Rate 16 33 H 28 H Blood Pressure 113/56 L 128/60 116/58 L Pulse Oximetry 92 L 92 L 94 L 01/18/18 15:00 01/18/18 16:00 01/18/18 16:14 Temperature 97.5 F L Pulse Rate 61 60 60 Respiratory Rate 9 L 10 L Blood Pressure 115/53 L Pulse Oximetry 95 96 96 01/18/18 17:00 01/18/18 17:30 01/18/18 18:00 Temperature Pulse Rate 59 L 63 59 L Respiratory Rate 26 H 31 H 23 Blood Pressure 103/84 Pulse Oximetry 94 L 94 L 89 L 01/18/18 19:00 01/18/18 19:06 01/18/18 19:52 Temperature Pulse Rate 61 68 67 Respiratory Rate 21 32 H 26 H Blood Pressure 110/62 98/54 L Pulse Oximetry 97 97 01/18/18 20:00 01/18/18 20:19 01/18/18 20:48 Temperature 98.2 F Pulse Rate 59 L 59 L 60 Respiratory Rate 22 17 Blood Pressure 98/54 L 106/55 L Pulse Oximetry 98 93 L 01/18/18 20:52 01/18/18 21:00 01/18/18 21:52 Temperature Pulse Rate 59 L 59 L 60 Respiratory Rate 13 15 17 Blood Pressure 97/52 L 100/51 L Pulse Oximetry 01/18/18 22:00 01/18/18 22:52 01/18/18 23:00 Temperature Pulse Rate 59 L 59 L 60 Respiratory Rate 15 13 15 Blood Pressure 105/52 L Pulse Oximetry 01/18/18 23:52 01/19/18 00:00 01/19/18 00:52 Temperature 98.3 F Pulse Rate 60 60 60 Respiratory Rate 14 14 13 Blood Pressure 98/54 L 98/54 L 92/53 L Pulse Oximetry 100 01/19/18 01:00 01/19/18 01:52 01/19/18 01:53 Temperature Pulse Rate 60 59 L 59 L Respiratory Rate 12 13 14 Blood Pressure 89/54 L 102/55 L Pulse Oximetry 01/19/18 02:00 01/19/18 02:52 01/19/18 03:00 Temperature Pulse Rate 62 61 60 Respiratory Rate 34 H 13 13 Blood Pressure 99/56 L Pulse Oximetry 01/19/18 03:52 01/19/18 04:00 01/19/18 04:52 Temperature 98.5 F Pulse Rate 64 60 60 Respiratory Rate 11 L 13 14 Blood Pressure 101/51 L 101/57 L 102/54 L Pulse Oximetry 100 01/19/18 05:00 01/19/18 05:52 01/19/18 06:00 Temperature Pulse Rate 60 60 62 Respiratory Rate 17 15 14 Blood Pressure 110/57 L Pulse Oximetry 01/19/18 06:52 01/19/18 07:00 01/19/18 07:52 Temperature Pulse Rate 63 63 59 L Respiratory Rate 12 12 32 H Blood Pressure 118/56 L 94/55 L Pulse Oximetry 01/19/18 08:00 01/19/18 08:52 01/19/18 09:00 Temperature 97.7 F Pulse Rate 60 63 63 Respiratory Rate 51 H 53 H 33 H Blood Pressure 108/59 L Pulse Oximetry 01/19/18 09:51 01/19/18 10:00 01/19/18 10:51 Temperature Pulse Rate 68 60 65 Respiratory Rate 44 H 38 H 44 H Blood Pressure 113/59 L 112/52 L Pulse Oximetry 01/19/18 11:00 01/19/18 11:51 01/19/18 12:00 Temperature 97.6 F Pulse Rate 59 L 63 63 Respiratory Rate 49 H 24 17 Blood Pressure 98/55 L 98/55 L Pulse Oximetry 91 L 96 Intake & Output 01/18/18 01/19/18 01/19/18 18:59 06:59 18:59 Intake Total 1325 / 1325 Output Total 400 / 400 200 / 200 Balance 925 / 925 -200 / -200 Weight 59.2 kg Intake: IV 1000 / 1000 NS Inj 1,000 ML @ 50 mls/hr IV. 1000 / 1000 CONT .Q20H [facility] Rx#:[id number] Oral 325 / 325 Output: Urine Amount (Catheter) 400 / 400 200 / 200 Indwelling Temp Sensing 400 / 400 200 / 200 Catheter Other: Date of Last Bowel Movement 01/16/18 01/16/18 01/16/18 Result Diagrams: 01/18/18 02:35 01/18/18 02:35 Imaging: Impressions Thoracic Spine X-Ray 01/18/18 13:40 CONCLUSION: 1. Redemonstration of severe compression fracture at T12 resulting in exaggerated kyphosis of the thoracolumbar spine. 2. Mild compression deformity at L1 which has minimally increased from prior exam. Disinhibition Score: 14.00 Aggression Score: 14.00 Lability Score: 14.00 Agitated Behavior Total Score: 14 Objective Remarks: GENERAL: This is a 82-year-old male sitting up in bed. No distress noted. SKIN: Warm and dry. HEAD: Atraumatic. Normocephalic. EYES: PERRLA ENT: No nasal bleeding or discharge. Mucous membranes pink and moist. NECK: Trachea midline. No JVD. CARDIOVASCULAR: Regular rate and rhythm. RESPIRATORY: No accessory muscle use. Lungs are clear to auscultation. Breath sounds equal bilaterally. No distress or dyspnea. GASTROINTESTINAL: BS + x 4 quads. Abdomen soft, non-tender, nondistended. MUSCULOSKELETAL: Extremities without cyanosis, or edema. TLSO brace in place. + peripheral pulses x 4 extremities. Warm with good capillary refill and sensation. MAEW. NEUROLOGICAL: Awake and alert. Normal speech and pattern. Assessment and Plan - Assessment (1) T12 vertebral fracture Code(s): S22.089A - Unspecified fracture of T11-T12 vertebra, initial encounter for closed fracture Status: Acute (2) Compression fracture of L1 lumbar vertebra Code(s): S32.010A - Wedge compression fracture of first lumbar vertebra, initial encounter for closed fracture Status: Acute Plan: [place]: This is a 82-year-old male who sustained a fall. He tripped on the carpet and fell onto the ground. No LOC. He was able to stand and walk after the fall. No paresthesia. He complains of back pain. He is a trauma transfer from [facility]. INJURIES: T12 fx L1 compression fx Bilateral inguinal hernias PMHX; Slipped disks. HLD. HTN. CHF. CAD. Hypothyroidism. Pacemaker/ defibrillator. On Eliquis. Procedures: Consults: Neurosurgery. Hospitalist. Rehab medicine. Case management. Diet: Cardiac diet. Tolerating po diet. Encourage good po intake with each meal. Pulmonary: Encourage good pulmonary toileting. IS at bedside and pt encouraged to use. Rationale for use explained to patient, and verbalized understanding. PAIN Management: Percocet 5-7.5 mg q4h. Morphine 2 mg q 3h for breakthrough pain. Activity: OOB. . PT and OT ordered. (TLSO when out of bed) GI prophylaxis: Protonix 40 mg QD Bowel regimen: Colace. MOM. LBM: o DC Ami cath. DVT prophylaxis: Mechanical VTE with SCDs. Chemical management with Eliquis 2.5 mg daily. DC Planning: Case management consulted for assistance with final discharge disposition. PT recommends rehab. Consult placed to [place] nurse liaison. Emotional support provided to patient and family at bedside and plan of care discussed. Discussed with RN at bedside. Discussed pt condition and plan of care with collaborating trauma surgeon. Patient is hemodynamically stable in the ICU, therefore he may be transferred and further managed on the med/surg floor. The trauma team will round each day, and evaluate plan of care on a daily basis. T12 fx L1 compression fx Neurosurgery consulted and assisting in management and care Supportive care Nonoperative management at this time TLSO brace when out of bed Pain management Encourage out of bed once cleared by neurosurgery post x-rays -request slow progression to OOB PT and OT ordered Bowel regimen Rehab consult Slipped disks. HLD. HTN. CHF. CAD. Hypothyroidism. Pacemaker/defibrillator. On Eliquis. Hospitalist consult to assist with medical management Vital signs every 4 hours and as needed Cardiac diet Resume home Coreg Resume home Lipitor Resume home Synthroid Resume home Eliquis Attestation: seen and examined -neuro intact,brace placed,ambulate,pain control,transfer floor (1) T12 vertebral fracture Qualifiers: Encounter type: initial encounter Fracture type: closed Fracture morphology : unspecified fracture morphology Qualified Code(s): S22.089A - Unspecified fracture of T11-T12 vertebra, initial encounter for closed fracture (2) Compression fracture of L1 lumbar vertebra Qualifiers: Encounter type: initial encounter Fracture type: closed Qualified Code(s): S32.010A - Wedge compression fracture of first lumbar vertebra, initial encounter for closed fracture
[2018-01-19] MEDS: Sod Chloride 0.9% Inj 1,000 ML IV.CONT SCH (17:32)
[2018-01-19] MEDS: Pantoprazole Inj 40 MG Vial IV.PUSH SCH (21:27)
[2018-01-20 03:06] LABS: Hematocrit 31.1 % (39.0-51.0); Hemoglobin 10.6 gm/dL (13.0-17.0); Mean Corpuscular Hemoglobin 34.7 pg (27.0-34.0); Mean Corpuscular Volume 102.2 fL (80.0-100.0); Mean Platelet Volume 8.4 fL (7.0-11.0); Platelet Count 139 th/mm3 (150-450); Red Blood Count 3.05 mil/mm3 (4.50-5.90); Red Cell Distribution Width 15.3 % (11.6-17.2)
[2018-01-20 03:37] LABS: Alanine Aminotransferase 19 U/L (12-78); Albumin 2.4 g/dL (3.4-5.0); Alkaline Phosphatase 115 U/L (45-117); Anion Gap 10 meq/L (5-15); Aspartate Aminotransferase 49 U/L (15-37); Blood Urea Nitrogen 12 mg/dL (7-18); Calcium 7.8 mg/dL (8.5-10.1); Carbon Dioxide 23.3 meq/L (21.0-32.0); Chloride 98 meq/L (98-107); Glomerular Filtration Rate 63 mL/min (>89); Glucose,Random 118 mg/dL (74-106); Magnesium 1.5 mg/dL (1.5-2.5); Potassium 4.9 meq/L (3.5-5.1); Sodium 131 meq/L (136-145); Total Protein 7.4 g/dL (6.4-8.2); Troponin I 0.13 ng/mL (0.02-0.05)
[2018-01-20] MEDS: Chlorhexidine Gluconate 2% 1 Pack (2 Cloths) TOPICAL SCH (05:47)
[2018-01-20] MEDS: Sod Chloride 0.9% Inj 1,000 ML IV.CONT SCH (05:57)
[2018-01-20] MEDS ORDERED: Ketorolac Inj 30 MG/ML (IVP) Vial IV.PUSH PRN (07:19)
[2018-01-20] MEDS: Polyethylene Glycol 3350 17 GM Packet PO SCH (10:02)
[2018-01-20] MEDS: Senna/Docusate Sodium 8.6/50 MG Tablet PO SCH ×2 (10:02→20:30)
[2018-01-20] MEDS: Lidocaine 5% Patch T-DERMAL SCH (10:02)
--- NOTE | 2018-01-20 12:13 | P.PNCC ---
Subjective Brief History: SAMISH: This is an 82-year-old male who sustained a fall. He tripped on the carpet and fell to the ground. No LOC. He was able to stand and walk post fall. No paresthesia. Original complaints of back pain. Trauma to transfer from [facility]. INJURIES: T12 fx L1 compression fx Bilateral inguinal hernias PMHX; Slipped disks. HLD. HTN. CHF. CAD. Hypothyroidism. Pacemaker/ defibrillator. On Eliquis. 24 Hour Review/Hospital Course: 01/18/2018 Patient sitting up in bed. No distress noted. Patient states that he is not painful, "as long as I lay on my back and do not move." Plan for upright x-rays with TLSO brace for further evaluation. Patient is hemodynamically stable, therefore once x-rays are completed, he may transfer to the [facility] floor. 01/19/2018 Patient sitting up in bed. No distress noted. No complaints of pain while patient is in bed. Patient states he is feeling, "so-so." Begin slow progress shunt towards activity per neurosurgery. Plan for OOB tomorrow. Patient may transfer to the [facility] floor once a bed becomes available. 01/20/2018 Patient doing well this morning he is awake alert and oriented Refuses to comply with physical and occupational therapy and get out of bed I discussed this with the patient and he will get out of bed with TLSO brace in order to assess his gait and level of activity All things equal patient will be discharged today to either a SNF or home which have recommended Patient is awaiting bed on the floor for the last 24 hours Neurologically patient is fully intact he is awake alert and oriented [place] Coma Scale 15 Motorically fully intact with no lateralization no drift normal deep tendon reflexes no pathologic reflexes Objective Vital Signs / I&O: Vital Signs 01/19/18 12:51 01/19/18 13:00 01/19/18 13:51 Temperature Pulse Rate 62 62 60 Respiratory Rate 28 H 37 H 34 H Blood Pressure 105/58 L 123/82 Pulse Oximetry 01/19/18 14:00 01/19/18 15:00 01/19/18 15:52 Temperature Pulse Rate 59 L 65 63 Respiratory Rate 14 24 21 Blood Pressure 115/56 L Pulse Oximetry 01/19/18 16:00 01/19/18 16:51 01/19/18 20:00 Temperature 97.6 F 97.8 F Pulse Rate 66 65 62 Respiratory Rate 29 H 13 24 Blood Pressure 120/56 L 112/62 Pulse Oximetry 98 01/20/18 00:00 01/20/18 04:00 Temperature 98.2 F 98.0 F Pulse Rate 59 L 61 Respiratory Rate 18 20 Blood Pressure 110/55 L 114/58 L Pulse Oximetry 98 99 Intake & Output 01/19/18 01/20/18 01/20/18 18:59 06:59 18:59 Intake Total 1250 / 1250 120 / 120 1500 / 1500 Output Total 100 / 100 0 / 0 Balance 1150 / 1150 120 / 120 1500 / 1500 Weight 61 kg Intake: IV 1000 / 1000 1500 / 1500 NS Inj 1,000 ML @ 50 mls/hr IV. 1000 / 1000 500 / 500 CONT .Q20H SANCHEZ Rx#:[id number] Oral 250 / 250 120 / 120 Output: Urine 100 / 100 0 / 0 Other: # Voids 0 Date of Last Bowel Movement 01/16/18 01/16/18 Result Diagrams: 01/20/18 02:58 01/20/18 02:58 Disinhibition Score: 14.00 Aggression Score: 14.00 Lability Score: 14.00 Agitated Behavior Total Score: 14 Assessment and Plan - Assessment (1) T12 vertebral fracture Code(s): S22.089A - Unspecified fracture of T11-T12 vertebra, initial encounter for closed fracture Status: Acute (2) Compression fracture of L1 lumbar vertebra Code(s): S32.010A - Wedge compression fracture of first lumbar vertebra, initial encounter for closed fracture Status: Acute Plan: SAMISH: This is a 82-year-old male who sustained a fall. He tripped on the carpet and fell onto the ground. No LOC. He was able to stand and walk after the fall. No paresthesia. He complains of back pain. He is a trauma transfer from [facility]. INJURIES: T12 fx L1 compression fx Bilateral inguinal hernias PMHX; Slipped disks. HLD. HTN. CHF. CAD. Hypothyroidism. Pacemaker/ defibrillator. On Eliquis. Procedures: Consults: Neurosurgery. Hospitalist. Rehab medicine. Case management. Diet: Cardiac diet. Tolerating po diet. Encourage good po intake with each meal. Pulmonary: Encourage good pulmonary toileting. IS at bedside and pt encouraged to use. Rationale for use explained to patient, and verbalized understanding. PAIN Management: Percocet 5-7.5 mg q4h. Morphine 2 mg q 3h for breakthrough pain. Activity: OOB. . PT and OT ordered. (TLSO when out of bed) GI prophylaxis: Protonix 40 mg QD Bowel regimen: Colace. MOM. LBM: o DC Mai cath. DVT prophylaxis: Mechanical VTE with SCDs. Chemical management with Eliquis 2.5 mg daily. DC Planning: Case management consulted for assistance with final discharge disposition. PT recommends rehab. Consult placed to [place] nurse liaison. Emotional support provided to patient and family at bedside and plan of care discussed. Discussed with RN at bedside. Discussed pt condition and plan of care with collaborating trauma surgeon. Patient is hemodynamically stable in the ICU, therefore he may be transferred and further managed on the med/surg floor. The trauma team will round each day, and evaluate plan of care on a daily basis. T12 fx L1 compression fx Neurosurgery consulted and assisting in management and care Supportive care Nonoperative management at this time TLSO brace when out of bed Pain management Encourage out of bed once cleared by neurosurgery post x-rays -request slow progression to OOB PT and OT ordered Bowel regimen Rehab consult Slipped disks. HLD. HTN. CHF. CAD. Hypothyroidism. Pacemaker/defibrillator. On Eliquis. Hospitalist consult to assist with medical management Vital signs every 4 hours and as needed Cardiac diet Resume home Coreg Resume home Lipitor Resume home Synthroid Resume home Eliquis (1) T12 vertebral fracture Qualifiers: Encounter type: initial encounter Fracture type: closed Fracture morphology : unspecified fracture morphology Qualified Code(s): S22.089A - Unspecified fracture of T11-T12 vertebra, initial encounter for closed fracture (2) Compression fracture of L1 lumbar vertebra Qualifiers: Encounter type: initial encounter Fracture type: closed Qualified Code(s): S32.010A - Wedge compression fracture of first lumbar vertebra, initial encounter for closed fracture
--- NOTE | 2018-01-20 12:56 | P.PNNS ---
Subjective Interval history: doing ok this morning minimal pain laying in bed. no new neurological complaints. Physical Exam Vital signs: Vital Signs 01/19/18 13:00 01/19/18 13:51 01/19/18 14:00 Temperature Pulse Rate 62 60 59 L Respiratory Rate 37 H 34 H 14 Blood Pressure 123/82 Pulse Oximetry 01/19/18 15:00 01/19/18 15:52 01/19/18 16:00 Temperature 97.6 F Pulse Rate 65 63 66 Respiratory Rate 24 21 29 H Blood Pressure 115/56 L Pulse Oximetry 01/19/18 16:51 01/19/18 20:00 01/20/18 00:00 Temperature 97.8 F 98.2 F Pulse Rate 65 62 59 L Respiratory Rate 13 24 18 Blood Pressure 120/56 L 112/62 110/55 L Pulse Oximetry 98 98 01/20/18 04:00 Temperature 98.0 F Pulse Rate 61 Respiratory Rate 20 Blood Pressure 114/58 L Pulse Oximetry 99 Intake & Output 01/19/18 01/20/18 01/20/18 18:59 06:59 18:59 Intake Total 1250 / 1250 120 / 120 1500 / 1500 Output Total 100 / 100 0 / 0 Balance 1150 / 1150 120 / 120 1500 / 1500 Weight 61 kg Intake: IV 1000 / 1000 1500 / 1500 NS Inj 1,000 ML @ 50 mls/hr IV. 1000 / 1000 500 / 500 CONT .Q20H SANCHEZ Rx#:[id number] Oral 250 / 250 120 / 120 Output: Urine 100 / 100 0 / 0 Other: # Voids 0 Date of Last Bowel Movement 01/16/18 01/16/18 Narrative: A&O x 3 laying flat in bed appears comfortable Motor 5/5 UE and LE Sensation intact throughout - Urinary Catheter Management Indwelling Temp Sensing Catheter Cath placed during this visit: yes, but has since been removed by the nurse Reason for continuing: Acute urinary retention Insertion date: 01/18/18 Removal date: 01/19/18 Removal time: 06:00 Assessment and Plan - Plan A/P: 82 yo with 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 Patient fitted in TLSO yesterday with upright films demonstrating increase in kyphosis centered at T12 level. Due to chronic appearing nature of fracture this could be patients natural alignment and increase in pain secondary to acute fracture at L1. Due to patients age, medical co-morbidities, and lack of significant mobility prior to injury, will attempt to treat conservatively -TLSO fitted and films reviewed -recommend slow progression in patients activity. start mobilize with TLSO brace -pain control -Calcium/Vit D supplementation with possible medicine/endocrinology consult for osteoporosis workup/management -ok to transfer patient to floor -possible MR to evaluate acuity of fracture if pacemaker allows
--- NOTE | 2018-01-20 13:41 | ECG ---
Date Performed: 01/20/2018 Time Performed: 05:01:50 PTAGE: 82 years EKG: Demand pacing. Pacemaker rhythm - no further analysis Abnormal ECG PREVIOUS TRACING : 12/09/2010 05.13 Since the previous tracing, no significant change noted DOCTOR: Simeon Zelaya Interpretating Date/Time 01/20/2018 13:40:13
--- NOTE | 2018-01-20 18:20 | P.PN ---
Subjective Interval history: Follow up for fall, T12, L1 fracture. Patient is doing well. No acute concerns. Possible discharge to [facility] tomorrow. Physical Exam Vital signs: Vital Signs 01/19/18 20:00 01/20/18 00:00 01/20/18 04:00 Temperature 97.8 F 98.2 F 98.0 F Pulse Rate 62 59 L 61 Respiratory Rate 24 18 20 Blood Pressure 112/62 110/55 L 114/58 L Pulse Oximetry 98 98 99 01/20/18 08:00 01/20/18 12:00 01/20/18 16:00 Temperature 97.7 F 98.0 F 97.8 F Pulse Rate 69 74 58 L Respiratory Rate 16 17 22 Blood Pressure 111/56 L 124/85 121/59 L Pulse Oximetry 92 L 99 94 L Intake & Output 01/19/18 01/20/18 01/20/18 18:59 06:59 18:59 Intake Total 1250 / 1250 120 / 120 1500 / 1500 Output Total 100 / 100 0 / 0 Balance 1150 / 1150 120 / 120 1500 / 1500 Weight 61 kg Intake: IV 1000 / 1000 1500 / 1500 NS Inj 1,000 ML @ 50 mls/hr IV. 1000 / 1000 500 / 500 CONT .Q20H SANCHEZ Rx#:[id number] Oral 250 / 250 120 / 120 Output: Urine 100 / 100 0 / 0 Other: # Voids 0 Date of Last Bowel Movement 01/16/18 01/16/18 01/16/18 Narrative: GENERAL: Alert, NAD. SKIN: Warm and dry. HEAD: Normocephalic. EYES: No scleral icterus. No injection or drainage. NECK: Supple, trachea midline. No JVD or lymphadenopathy. CARDIOVASCULAR: Regular rate and rhythm without murmurs, gallops, or rubs. RESPIRATORY: Breath sounds equal bilaterally. No accessory muscle use. GASTROINTESTINAL: Abdomen soft, non-tender, nondistended. MUSCULOSKELETAL: No cyanosis, or edema. BACK: Nontender without obvious deformity. No CVA tenderness. - Urinary Catheter Management Indwelling Temp Sensing Catheter Cath placed during this visit: yes, but has since been removed by the nurse Reason for continuing: Acute urinary retention Insertion date: 01/18/18 Removal date: 01/19/18 Removal time: 06:00 Results - Labs CBC & Chem 7: 01/20/18 02:58 10/15/18 02:58 Laboratory Results - last 24 hr 01/20/18 01/20/18 01/20/18 02:50 02:58 02:58 WBC 8.0 RBC 3.05 L Hgb 10.6 L Hct 31.1 L MCV 102.2 H MCH 34.7 H MCHC 34.0 RDW 15.3 Plt Count 139 L MPV 8.4 Sodium 131 L Potassium 4.9 Chloride 98 Carbon Dioxide 23.3 Anion Gap 10 BUN 12 Creatinine 1.11 Estimated GFR 63 L Random Glucose 118 H Calcium 7.8 L Magnesium 1.5 Total Bilirubin 1.7 H AST 49 H ALT 19 Alkaline Phosphatase 115 Troponin I Cancelled 0.13 H Total Protein 7.4 Albumin 2.4 L Assessment and Plan - Plan Mr. Escudero is a pleasant 82-year-old male with a history of complete heart block status post pacemaker placement, hypertension, hypothyroidism who was admitted to the hospital under trauma alert after he fell and sustained a T12-L1 fracture. Trauma surgery and neurosurgery have been following patient. Hospital service was consulted for medical management. Fall T12 and L1 fracture -Neurosurgery following and recommends TLSO brace as well as gradual mobilization. -Continue Percocet for pain management as well as lidocaine patch History of complete heart block Hypothyroidism Hyperlipidemia Possible hx of Afib - patient could not tell me. However, his unload associate put him on Apixaban. -Status post [employer] pacemaker placement in 2010. -Patient is currently on carvedilol 3.125 mg twice daily. -Continue levothyroxine 25 mcg daily -Continue atorvastatin 20 mg daily. -Continue apixaban 2.5 mg PO BID. Full code. Apixaban.
[2018-01-20] MEDS: Pantoprazole Inj 40 MG Vial IV.PUSH SCH (20:29)
[2018-01-21] MEDS: Chlorhexidine Gluconate 2% 1 Pack (2 Cloths) TOPICAL SCH (05:39)
[2018-01-21] MEDS: Senna/Docusate Sodium 8.6/50 MG Tablet PO SCH (09:32)
[2018-01-21] MEDS: Lidocaine 5% Patch T-DERMAL SCH (09:32)
[2018-01-21] MEDS: Polyethylene Glycol 3350 17 GM Packet PO SCH (09:32)
[2018-01-21 12:52] VITALS: BP 114/60; PULSE 60; RESP 16; TEMP 98; O2SAT 99
--- NOTE | 2018-01-21 13:24 | P.DS ---
Date of admission: 01/17/18 16:10 Primary care physician: No Primary Care Physician Brief History from admission: S/P Fall DS: Diagnosis - Discharge Diagnosis (1) Fall Status: Acute (2) Compression fracture of L1 lumbar vertebra Status: Acute (3) Impaired mobility and activities of daily living Status: Acute (4) T12 vertebral fracture Status: Acute DS: Summary Hospital Course: ALGAACIQ: Fell from the standing position when he tripped on the carpet. No LOC. Ambulatory at scene. No paresthesia. INJURIES: T12 fx L1 compression fx PMHx: Chronic back pain, HLD, HTN, CHF, CAD, Hypothyroidism, Pacemaker/ defibrillator. T12 fx, L1 compression fx Neurosurgery consulted, F/U outpatient Supportive care Nonoperative management at this time TLSO brace when out of bed Pain control Bowel regimen OOB- PT and OT ordered- PT recommend rehab Continue Eliquis 2.5mg QD Rehab consult Plan of care d/w patient at bedside. Collaborating Trauma MD agrees with plan. Case management consulted. Patient is clear from trauma surgery standpoint to safely DC to [place] inpatient rehab. - Time Spent with Patient Total time spent providing and/or coordinating discharge services: Greater than 30 minutes - Quality: VTE Deep Vein Thrombosis/Pulmonary Embolism Present on Admission: No Exam Vital signs: Vital Signs 01/20/18 16:00 01/20/18 20:00 01/21/18 00:00 Temperature 97.8 F 96.8 F L 98.9 F Pulse Rate 58 L 63 65 Respiratory Rate 22 22 16 Blood Pressure 121/59 L 133/60 110/55 L Pulse Oximetry 94 L 92 L 100 01/21/18 04:00 01/21/18 07:46 01/21/18 08:00 Temperature 98.4 F 97.7 F Pulse Rate 64 59 L Respiratory Rate 15 16 Blood Pressure 128/57 L 106/59 L Pulse Oximetry 98 97 100 01/21/18 10:09 01/21/18 12:00 Temperature 98.0 F Pulse Rate 60 Respiratory Rate 13 16 Blood Pressure 114/60 Pulse Oximetry 99 Intake & Output 01/20/18 01/21/18 01/21/18 18:59 06:59 18:59 Intake Total 1700 / 1700 60 / 60 Output Total 250 / 250 200 / 200 Balance 1450 / 1450 -140 / -140 Weight 57.7 kg 61.1 kg Intake: IV 1500 / 1500 NS Inj 1,000 ML @ 50 mls/hr IV. 500 / 500 CONT .Q20H SANCHEZ Rx#:[id number] Oral 200 / 200 60 / 60 Output: Urine 250 / 250 200 / 200 Other: # Voids 2 2 Date of Last Bowel Movement 01/16/18 01/16/18 01/16/18 # Bowel Movements 0 Narrative: GENERAL:This is a 82-year-old male OOB in chair. SKIN: Warm and dry. HEAD: Normocephalic. CARDIOVASCULAR: Regular rate and rhythm. RESPIRATORY: No accessory muscle use. Lungs are clear and diminished to auscultation bilaterally. GASTROINTESTINAL: Abdomen soft, non-tender, nondistended. + BS MUSCULOSKELETAL: Extremities without cyanosis, or edema. TLSO brace in place. Strength 4/5 BUE and BLE. + perfused, MAEW. NEUROLOGICAL: Awake and alert. Normal speech. Results Procedures completed during hospitalization: . - Impressions ITS Impressions Lumbar Spine CT 01/17/18 13:50 CONCLUSION: Severe compressive deformity at T12 and fracturing without significant compressive deformity at L1. Abdomen/Pelvis CT 01/17/18 16:07 CONCLUSION: 1. Nonspecific bowel gas pattern. This may represent an ileus. The bowel extends down into the right inguinal hernia is no definite inflammatory change.. 2. No acute visceral injury. 3. Visualization of the known fracture deformity of the T12 vertebral body again noted. Please see lumbar spine CT for further details. 4. Bilateral inguinal hernias. On the right there is a loop of bowel in the hernia. On the left there is fat. Cervical Spine CT 01/17/18 16:07 CONCLUSION: 1. No fracture or dislocation. 2. Osteopenia and degenerative changes as detailed above. Chest X-Ray 01/17/18 16:07 CONCLUSION: No acute cardiopulmonary disease. Head CT 01/17/18 16:07 CONCLUSION: 1. No acute hemorrhage or mass effect. 2. Low-attenuation areas in the left frontal lobe most characteristic of an area of encephalomalacia and prior infarction. . Thoracic Spine X-Ray 01/18/18 13:40 CONCLUSION: 1. Redemonstration of severe compression fracture at T12 resulting in exaggerated kyphosis of the thoracolumbar spine. 2. Mild compression deformity at L1 which has minimally increased from prior exam. Discharge Plan - Discharge Disposition Patient Disposition: [facility] Rehab Inpatient - Discharge Condition Condition: Stable - Discharge Order Discharge Orders: Discharge Order (Routine); Ordered 01/20/18 Ordered By: Hilda Beal - Physicians Team Primary Care Provider: Primary Care Sintia Greenberg Attending Provider: Katie Hazel Other Providers: Coleman Luna MD ; Chapin Marcos MD ; Systems, [employer] ; Camden Kendall MD ; Lea Nolasco ARNP ; Juan Brunner MD ; Katie Hazel MD ; Hilda Beal ARNP ; Matt Ledezma MD ; Adam Mcelroy MD ; Randi Pineda MD ; Kendra Bassett DO
== END 2018-01-21 14:30 ==
LOC: PHEFT 13:21 → PHEDA 16:10 → N03 19:03 → PHEDA 19:03 → N03 19:25
PROVIDERS: ADMIT Surgery Trauma Surgery; ATTEND Surgery Trauma Surgery